=== PATIENT | female | born 1990 | race African-American/Black ===

== ENCOUNTER 2025-08-17 14:00 | Emergency (ER) | payer MEDICAID, SELFPAY ==
[2025-08-17 14:04] VITALS: BP 140/90; PULSE 79; RESP 18; TEMP 36.8; O2SAT 100
--- NOTE | 2025-08-17 15:02 | ED.GENADULT ---
HPI - General Adult General Chief complaint: Psychiatric Symptoms Stated complaint: I need a post evaluation Time Seen by Provider: 08/17/25 14:32 History of Present Illness HPI narrative: 34-year-old female with history of depression anxiety presents to the emergency department for evaluation for worsening symptoms. Patient did make a statement to family and stated ?if I am not able to whether the storm then please let my girls know that I love them. Police were notified and police are present with the patient in the emergency department. Patient states she does have a longstanding history of depression anxiety. Patient has not followed up with her therapist in approximately 1 year. Patient had previously been on medications years ago but states she did not feel that they help her symptoms but just made her numb to the world. Patient did have a child approximately 4 months ago and states that her depression anxiety has worsened since that time. Patient reports she is also going through a break-up and feels overwhelmed by the responsibility. Patient states she does not want to hurt herself but she also sometimes feels that she does not want to carry on. Related Data Allergies Allergy/AdvReac Type Severity Reaction Status Date / Time No Known Allergies Allergy Verified 08/17/25 14:11 Review of Systems Review of Systems: All systems reviewed & are unremarkable except as noted in HPI and below PMFSH Social History Social History Substance use type: does not use Exam Narrative: APPEARANCE: Well appearing, no pain, no distress, well-nourished. HEAD: normocephalic, atraumatic. EYES: PERRLA/EOMI, conjunctivae clear. NOSE: Normal no drainage EARS:TMS clear with good light reflex. THROAT: Pharynx clear, no exudate. NECK: Supple. No adenopathy, no masses. RESPIRATORY: Airway patent, respirations nonlabored. Clear to auscultation bilaterally, no rales, rhonchi, wheezing. CARDIOVASCULAR: Regular rate and rhythm without murmurs rubs or gallops. ABDOMINAL: Soft, nontender, nondistended, normal bowel sounds MUSCULOSKELETAL: Moves all extremities. Strength/ROM intact, No edema, No calf tenderness. NEURO: Alert. Cranial nerves II through XII intact. Good gait. Good coordination SKIN: Warm, dry. Normal Color PSYCHIATRIC: Flat affect Course Vital Signs Vital signs: Vital Signs Temperature 98.2 F 08/17/25 14:04 Pulse Rate 79 08/17/25 14:04 Respiratory Rate 18 08/17/25 14:04 Blood Pressure 140/90 08/17/25 14:04 Pulse Oximetry 100 08/17/25 14:04 Temperature 98.2 F 08/17/25 21:07 Pulse Rate 88 08/17/25 21:07 Respiratory Rate 18 08/17/25 21:07 Blood Pressure 138/78 08/17/25 21:07 Pulse Oximetry 100 08/17/25 21:07 Medical Decision Making MDM Narrative Medical decision making narrative: 34-year-old female presents to the emergency department for evaluation for worsening depression and anxiety. Patient had a negative medical workup with no a white blood cell count hemoglobin 11.5, no acute abnormalities on her CMP patient did have evidence of a urinary tract infection on her UA. Patient was treated with Keflex emergency department discharged home on Keflex. Patient was evaluated crisis and patient did sign a safety grieve min. Patient was comfortable the plan for discharge and close follow-up. Patient was educated on reasons to return to the emergency department. All questions concerns were addressed. Differential Diagnosis Differential Diagnosis: Depression and anxiety, suicidal ideation, homicidal ideation, UTI Vital Signs Vital Signs: Vital Signs Temperature 98.2 F 08/17/25 14:04 Pulse Rate 79 08/17/25 14:04 Respiratory Rate 18 08/17/25 14:04 Blood Pressure 140/90 08/17/25 14:04 Pulse Oximetry 100 08/17/25 14:04 Temperature 98.2 F 08/17/25 21:07 Pulse Rate 88 08/17/25 21:07 Respiratory Rate 18 08/17/25 21:07 Blood Pressure 138/78 08/17/25 21:07 Pulse Oximetry 100 08/17/25 21:07 Lab Data Lab results reviewed: Yes I reviewed the patient's lab results. 08/17/25 15:46 08/17/25 15:46 Labs: Lab Results 08/17/25 08/17/25 Range/Units 15:40 15:46 WBC 7.3 (4.5-10.0) K/mm3 RBC 4.14 L (4.2-5.4) M/mm3 Hgb 11.5 L (12.0-15.0) g/dL Hct 35.5 L (37.0-47.0) % MCV 85.7 (80-100) fl MCH 27.8 (26-34) pg MCHC 32.4 (32-36) g/dl RDW 14.3 (11.5-14.5) % Plt Count 422 H (150-375) k/mm3 MPV 9.7 (7.4-10.4) fl Immature Gran % (Auto) 0.3 (0-0.5) % Neut % (Auto) 42.6 L (45.5-73.1) % Lymph % (Auto) 47.0 H (18.3-44.2) % [place] % (Auto) 6.3 (2.6-8.5) % Eos % (Auto) 3.3 (0-4.4) % Baso % (Auto) 0.5 (0.2-1.2) % Lymph # (Auto) 3.44 H (0.9-3.2) K/mm3 [place] # (Auto) 0.5 (0.1-0.6) K/mm3 Eos # (Auto) 0.2 (0-0.3) K/mm3 Baso # (Auto) 0.0 (0.0-0.1) K/mm3 Abs Immat Gran (auto) 0.02 (0.00-0.031) K/mm3 Absolute Neuts (auto) 3.1 (1.3-6.7) K/mm3 Absolute Nucleated RBC 0.000 (0.0-0.012) K/mm3 Nucleated RBC % 0.0 (0.0-0.2) % Sodium 140 (137-145) mmol/L Potassium 3.8 (3.4-5.0) mmol/L Chloride 106 (98-107) mmol/L Carbon Dioxide 27 (22-30) mmol/L Anion Gap 7 (4-12) mmol/L BUN 12 (7-17) mg/dL Creatinine 1.09 H (0.7-1.0) mg/dL Estim Creat Clear Calc 86 ml/min Estimated GFR 57 L (59 - ) Glucose 76 (65-110) mg/dL Calcium 9.0 (8.4-10.2) mg/dL Total Bilirubin 0.2 (0.2-1.3) mg/dL AST 27 (14-36) U/L ALT 19 (6-35) U/L Alkaline Phosphatase 73 (38-126) U/L Total Protein 7.9 (6.3-8.2) g/dL Albumin 4.2 (3.5-5.1) g/dL TSH (Reflex) 0.419 L (0.465-4.68) uIU/mL Free T4 1.09 (0.78-2.19) ng/dL Total T3 1.27 (0.82-1.58) NG/ML Urine Color Yellow (Yellow) Urine Appearance Turbid H (Clear) Urine pH 5.5 (5.0-9.0) Ur Specific [place] 1.023 (1.001-1.035) Urine Protein Negative (Negative) mg/dL Urine Glucose (UA) Negative (Negative) mg/dL Urine Ketones Trace H (Negative) mg/dL Ur Blood (Man) Negative (Negative) Urine Nitrate Negative (Negative) Urine Bilirubin Negative (Negative) Urine Urobilinogen 1.0 (<2.0) mg/dL Leukocyte Esterase Rfl 2+ H (Negative) YEIMI/UL Urine RBC 0-2 (0-2) /hpf Urine WBC 11-20 H (0-3) /hpf Ur Squamous Epith Cells Many H (Few) /hpf Urine Bacteria 4+ H /hpf Urine Casts 0-2 POC Urine HCG, Qual Negative (Negative) Salicylates < 1.0 L (2-20) mg/dL Urine Opiates Screen Negative (Negative) Urine Methadone Screen Negative (Negative) Acetaminophen < 10 L (10-30) ug/mL Ur Barbiturates Screen Negative (Negative) Ur Phencyclidine Scrn Negative (Negative) Ur Amphetamine Screen Negative (Negative) U Benzodiazepines Scrn Negative (Negative) Urine Cocaine Screen Negative (Negative) U Cannabinoids Screen Positive A (Negative) Ethyl Alcohol < 10 (<10) mg/dL Influenza A (RT-PCR) Negative (Negative) Influenza B (RT-PCR) Negative (Negative) RSV (RT-PCR) Negative (Negative) SARS-CoV-2 RNA (RT-PCR) Negative (Negative) Discharge Plan Discharge Clinical Impression: UTI (urinary tract infection), Anxiety and depression Patient Disposition: Psychiatric Hosp Condition: Stable Instructions: Urinary Tract Infection in Women (DC), Depression (ED) Additional Instructions: Antibiotics as directed until completed. Have close follow-up with psychiatry and counseling as outpatient. If you have any worsening symptoms or if you do not feel safe at home please call or return to the emergency department. Patient Language: Icelandic Prescriptions: New cephalexin 500 mg capsule 500 mg PO Q8H 7 Days Qty: 21 0RF Follow-up/Referrals: PHYSICIAN,JOINT FINISHER [Primary Care Provider, Internal Medicine]
--- OUTSIDE RECORDS SUMMARY | 2025-08-17 15:43 | XMS_ITS | Clinical Summary ---
Author Organization [facility] Address [address] [place] [address] Phone Care Team Providers Care Healthcare Market Consultant Name Role Phone Unavailable Primary Care Provider Unavailabl e Encounters Date Type Department Care Team Description 08/09/2025 External Device Data [facility] ABSTRACTION Provider, Abstract 06/07/2025 External Device Data [facility] ABSTRACTION Provider, Abstract 06/07/2025 External Device Data [facility] ABSTRACTION Provider, Abstract 05/24/2025 External Device Data [facility] ABSTRACTION Provider, Abstract from Last 3 Months Social History Tobacco Use Types Packs/Day Years Used Date Smoking Tobacco: Never Assessed Comments Unknown Sex and Gender Information Value Date Recorded Sex Assigned at Not on file Legal Sex Female 11:51 PM CDT Gender Identity Not on file Sexual Orientation Not on file Plan of Treatment Health Maintenance Due Date Last Done Comments DTAP/TDAP/TD VACCINES (1 - Tdap) 2007 HEPATITIS B VACCINES (1 of 3 - 19+ 3-dose series) 12/2006 HPV/Cotest (21-29) 2009 HPV VACCINES (1 - 3-dose SCDM series) 2015 CERVICAL CANCER SCREENING 2018 HPV/Cotest (30-65) 2018 PAP SMEAR 2018 INFLUENZA VACCINE (#1) 2025 Insurance [facility] [id number]
--- OUTSIDE RECORDS SUMMARY | 2025-08-17 15:43 | XMS_ITS | Clinical Summary ---
Author Organization [address] Address [address] [place] [phone] Care Team Providers Care Warehouse Forklift Operator Name Role Phone Unknown, Notinfile Primary Care Provider Unavail able Allergies No known active allergies Medications buPROPion XL (WELLBUTRIN XL) 150 mg 24 hr tablet Take 1 tablet (150 mg total) by mouth every morning 08/15/2023 Active Active Problems No known active problems Social History Tobacco Use Types Packs/Day Years Used Date Smoking Tobacco: Never Assessed Comments Unknown Sex and Gender Information Value Date Recorded Sex Assigned at Not on file Legal Sex Female 12:05 PM SCIENTIFIC INVESTIGATOR Gender Identity Not on file Sexual Orientation Not on file Obstetrics History Last Filed Vital Signs Vital Sign Reading Time Taken Comments Blood Pressure 132/82 09/29/2023 9:22 AM SCIENTIFIC INVESTIGATOR Pulse 86 09/29/2023 9:22 AM SCIENTIFIC INVESTIGATOR Temperature 36.8 C (98.3 F) 09/29/2023 9:22 AM SCIENTIFIC INVESTIGATOR Respiratory Rate 18 09/29/2023 9:22 AM SCIENTIFIC INVESTIGATOR Oxygen Saturation 100% 09/29/2023 9:22 AM SCIENTIFIC INVESTIGATOR Inhaled Oxygen Concentration - - Weight 115.3 kg (254 lb 4.8 oz) 09/29/2023 9:22 AM SCIENTIFIC INVESTIGATOR Height 175.3 cm (5' 9.02) 09/29/2023 9:22 AM CS T Body Mass Index 37.54 09/29/2023 9:22 AM SCIENTIFIC INVESTIGATOR Plan of Treatment Health Maintenance Due Date Last Done Comments Cervical Cancer Screening 1988 Depression Screening 1988 Hepatitis C Screening 1988 Varicella Vaccines (1 of 2 - 13+ 2-dose series) 2001 DTaP/Tdap/Td Vaccine (5 - Tdap) 06/22/2005 06/21/2005, 06/25/1994, 08/21/1989, Additional history exists Hepatitis B Screening 2006 Regular Well Visit/Exam 18-64 2006 HPV Vaccines (1 - 3-dose SCDM series) 2015 Influenza Vaccine (#1) 2025 Pneumococcal vaccine <65 Aged Out No longer eligible based on patient's age to complete this topic Insurance [facility] Address: [facility] [address] [place] [address] Care Teams Warehouse Forklift Operator Relationship Specialty Start Date End Date Unknown, Notinfile PCP - General 09/29/23
[2025-08-17 15:44] LABS: BEDSIDEPREGUCG Negative (Negative)
[2025-08-17 16:09] LABS: Hematocrit 35.5 % (37.0-47.0); Hemoglobin 11.5 g/dL (12.0-15.0); Immature Granulocyte Percent A 0.3 % (0-0.5); Lymphocytes Absolute Auto 3.44 K/mm3 (0.9-3.2); Mean Corpuscular HGB Conc 32.4 g/dl (32-36); Mean Corpuscular Hemoglobin 27.8 pg (26-34); Mean Corpuscular Volume 85.7 fl (80-100); Nucleated Red Blood Cells Absolute Auto 0.000 K/mm3 (0.0-0.012); Nucleated Red Blood Cells Perc 0.0 % (0.0-0.2); Platelet Count Result 422 k/mm3 (150-375); Red Blood Count 4.14 M/mm3 (4.2-5.4); White Blood Count 7.3 K/mm3 (4.5-10.0)
[2025-08-17 16:12] LABS: Add Urine Microscopic? YES; Appearance Urine Turbid (Clear); Glucose Urine UA Negative (Negative); Leukocyte Esterase Ur 2+ LEU/UL (Negative); Nitrate Urine Negative (Negative); Non Pathogenic Casts 0-2; Specific Grav Ur 1.023 (1.001-1.035)
[2025-08-17 16:19] LABS: Alanine Aminotransferase 19 U/L (6-35); Albumin Level 4.2 g/dL (3.5-5.1); Alkaline Phosphatase 73 U/L (38-126); Anion Gap 7 mmol/L (4-12); Aspartate Amino Transferase 27 U/L (14-36); Bilirubin,Total 0.2 mg/dL (0.2-1.3); Blood Urea Nitrogen 12 mg/dL (7-17); Calcium 9.0 mg/dL (8.4-10.2); Carbon Dioxide 27 mmol/L (22-30); Chloride 106 mmol/L (98-107); Estimated CRCL calculation 86 ml/min; Estimated Glomerular Filt Rate 57; Glucose 76 mg/dL (65-110); Potassium 3.8 mmol/L (3.4-5.0); Sodium 140 mmol/L (137-145); Total Protein 7.9 g/dL (6.3-8.2)
[2025-08-17 16:20] LABS: Acetaminophen < 10 ug/mL (10-30); Salicylate < 1.0 mg/dL (2-20)
[2025-08-17 16:30] LABS: Cannabinoid Screen Urine Positive (Negative)
[2025-08-17 16:32] VITALS: BP 126/85; PULSE 83; RESP 16; O2SAT 99
[2025-08-17 16:46] LABS: Influenza A QL RT-PCR Negative (Negative); Influenza B QL RT-PCR Negative (Negative); RSV RNA, RT-PCR Negative (Negative); SARS-CoV-2 RNA PCR Negative (Negative)
[2025-08-17 16:57] LABS: Thyroid Stimulating Hormone Reflex 0.419 uIU/mL (0.465-4.68)
--- OUTSIDE RECORDS SUMMARY | 2025-08-17 17:23 | XMS_ITS | Clinical Summary ---
Author Organization [address] Address [address] [place] [phone] Care Team Providers Care Ditto Machine Operator Name Role Phone Unknown, Notinfile Primary [...] on file Legal Sex Female 12:05 PM BACKUP OPERATOR Gender Identity Not on file Sexual Orientation Not on file Obstetrics History Last Filed Vital Signs Vital Sign Reading Time Taken Comments Blood Pressure 132/82 09/29/2023 9:22 AM BACKUP OPERATOR Pulse 86 09/29/2023 9:22 AM BACKUP OPERATOR Temperature 36.8 C (98.3 F) 09/29/2023 9:22 AM BACKUP OPERATOR Respiratory Rate 18 09/29/2023 9:22 AM BACKUP OPERATOR Oxygen Saturation 100% 09/29/2023 9:22 AM BACKUP OPERATOR Inhaled Oxygen Concentration - - Weight 115.3 kg (254 lb 4.8 oz) 09/29/2023 9:22 AM BACKUP OPERATOR Height 175.3 cm (5' 9.02) 09/29/2023 9:22 AM CS T Body Mass Index 37.54 09/29/2023 9:22 AM BACKUP OPERATOR Plan of Treatment Health Maintenance Due Date [...] patient's age to complete this topic Insurance [facility] CHO[facility] PL[facility] Care Teams Ditto Machine Operator Relationship Specialty Start Date End Date Unknown, Notinfile PCP - General 09/29/23
--- OUTSIDE RECORDS SUMMARY | 2025-08-17 17:23 | XMS_ITS | Clinical Summary ---
Author Organization [facility] Address [address] [place] [address] Phone Care Team Providers Care Bilingual Operator Name Role Phone Unavailable Primary Care Provider [...] SMEAR 2018 INFLUENZA VACCINE (#1) 2025 Insurance [facility] [id number]
[2025-08-17 17:39] LABS: Free T4 Free Thyroxine Reflex 1.09 ng/dL (0.78-2.19)
[2025-08-17] MEDS: CEPHALEXIN 500 MG CAPSULE PO (18:20)
[2025-08-17 18:21] VITALS: BP 125/76; PULSE 82; RESP 17; O2SAT 100
[2025-08-17 18:47] LABS: Total Triiodothyronine (T3) 1.27 NG/ML (0.82-1.58)
--- NOTE | 2025-08-17 20:55 | PC.NURSE ---
Per Crisis counselor, patient will be sent home with a safety plan.
[2025-08-17 21:07] VITALS: BP 138/78; PULSE 88; RESP 18; TEMP 36.8; O2SAT 100
== END 2025-08-17 21:08 | disposition home or self-care (01) ==
PROVIDERS: Emergency Provider Emergency Medicine
DX: N39.0 Urinary tract infection, site not specified (principal); F32.A Depression, unspecified; F41.9 Anxiety disorder, unspecified; Z20.822 Contact with and (suspected) exposure to COVID-19
CPT/HCPCS: 36415; 80053; 80143; 80179; 80307; 81001; 81025; 82077; 84439; 84443; 84480; 85025; 87637; 99284; A9270